=== PATIENT | male | born 1945 | race Caucasian/White ===

== ENCOUNTER 2017-01-12 16:09 | Inpatient (IN) | payer MEDICARE ==
[2017-01-12 17:15] LABS: Basophils % (Auto) 2.1 % (0.0-1.8); Eosinophils % (Auto) 2.8 % (0.0-4.3); Mean Corpuscular HGB Conc 31 % (32-34); Mean Corpuscular Hemoglobin 27 pg (28-32); Mean Corpuscular Volume 86 fl (84-94); Platelet Count 296 K/mm3 (140-440); Red Blood Count 4.99 M/mm3 (3.65-5.03); Red Cell Distribution Width 16.7 % (13.2-15.2); White Blood Count 7.3 K/mm3 (4.5-11.0)
[2017-01-12 17:18] LABS: Hematocrit 42.9 % (35.5-45.6); Hemoglobin 13.3 gm/dl (11.8-15.2)
[2017-01-12 17:35] LABS: Anion Gap 21 mmol/L; BUN/Creatinine Ratio 21.25; Blood Urea Nitrogen 34 mg/dL (9-20); Calcium 9.1 mg/dL (8.4-10.2); Carbon Dioxide 23 mmol/L (22-30); Chloride 102.1 mmol/L (98-107); Glucose 116 mg/dL (75-100); Potassium 4.5 mmol/L (3.6-5.0); Sodium 142 mmol/L (137-145)
[2017-01-12] MEDS ORDERED: LASIX IV ONE (18:14)
--- NOTE | 2017-01-12 18:16 | Emergency Department Report ---
ED Shortness of Breath HPI - General Chief Complaint: Dyspnea/Respdistress Stated Complaint: CHF Time Seen by Provider: 01/12/17 18:13 Source: patient, family Mode of arrival: Wheelchair Limitations: No Limitations - History of Present Illness MD Complaint: shortness of breath, cough -: Gradual Severity: moderate Quality: dull, aching Consistency: constant Improves With: nothing Worsens With: nothing Known History Of: congestive heart failure Context: recent URI Associated Symptoms: chest pain, polyuria, polydipsia Treatments Prior to Arrival: none - Related Data Home Oxygen Therapy: No Allergies Allergy/AdvReac Type Severity Reaction Status Date / Time codeine AdvReac Unknown Verified 01/12/17 16:26 ED Review of Systems ROS: Stated complaint: CHF Other details as noted in HPI Comment: All other systems reviewed and negative ED Past Medical Hx - Past Medical History Previous Medical History?: Yes Hx Hypertension: Yes Hx Heart Attack/AMI: Yes Hx Congestive Heart Failure: Yes Hx Deep Vein Thrombosis: Yes Additional medical history: Polycythemia vera. AICD/pacer - Surgical History Past Surgical History?: Yes Hx Open Heart Surgery: Yes Hx Pacemaker: Yes Additional Surgical History: Vascular surgery for DVT - Social History Smoking Status: Never Smoker Substance Use Type: None ED Physical Exam - General Limitations: No Limitations General appearance: alert, in no apparent distress - Head Head exam: Present: atraumatic, normocephalic - Eye Eye exam: Present: normal appearance - ENT ENT exam: Present: normal exam, normal orophraynx, mucous membranes moist - Neck Neck exam: Present: normal inspection - Respiratory Respiratory exam: Present: normal lung sounds bilaterally, respiratory distress , rales, rhonchi, decreased breath sounds - Cardiovascular Cardiovascular Exam: Present: regular rate, normal rhythm. Absent: systolic murmur, diastolic murmur, rubs, gallop - GI/Abdominal GI/Abdominal exam: Present: soft, normal bowel sounds - Rectal Rectal exam: Present: deferred - Extremities Exam Extremities exam: Present: normal inspection - Back Exam Back exam: Present: normal inspection - Neurological Exam Neurological exam: Present: alert, oriented X3 - Psychiatric Psychiatric exam: Present: normal affect, normal mood - Skin Skin exam: Present: warm, dry, intact, normal color. Absent: rash ED Course Vital Signs 01/12/17 01/12/17 16:19 18:25 Temperature 97.9 F 98.3 F Pulse Rate 97 H 84 Respiratory 20 20 Rate Blood Pressure 127/79 Blood Pressure 122/69 [Left] O2 Sat by Pulse 88 100 Oximetry ED Medical Decision Making - Lab Data Result diagrams: 01/12/17 17:02 01/12/17 17:02 - EKG Data Interpretation: no acute changes - Radiology Data Radiology results: report reviewed, image reviewed - Medical Decision Making will need admission for pulmonary edema / chf , no chest pain Critical care time in (mins) excluding proc time.: 35 Critical care attestation.: If time is entered above; I have spent that time in minutes in the direct care of this critically ill patient, excluding procedure time. ED Disposition Clinical Impression: Pulmonary edema Disposition: DC-09 OP ADMIT IP TO THIS HOSP Is pt being admited?: Yes Does the pt Need Aspirin: No Condition: Stable Instructions: Pulmonary Edema (ED) Referrals: PRIMARY CARE, [Primary Care Provider] - 3-5 Days Time of Disposition: 19:30
[2017-01-12 19:14] LABS: INR 2.09 (0.87-1.13)
--- NOTE | 2017-01-12 19:48 | History and Physical Report ---
History of Present Illness Chief complaint: Im short of breath, and my head charrer sent me in History of present illness: 71 YO Male with HTN, [place], CHF, CAD S/P CABG, DVT on therapeutic anticoagulation, DM, PCV, Metabolic Syndrome presents to ED for evaluation. Pt states that he has experienced shortness of breath, and bilateral leg swelling for the past week with worsening symptoms for the past 2 days. Pt acknowledges decreased exercise tolerance, Orthopnea/PND. Pt denies fever, chills, CP, Palpitations, NVD,Syncope, productive cough, or recent ill contacts. Past History Past Medical History: acute [place], diabetes, DVT, heart failure, hypertension Past Surgical History: CABG, Other (Pacemaker, vascular surgery) Social history: single, lives with family. denies: smoking, alcohol abuse, prescription drug abuse, IV drug use Family history: diabetes, hypertension Medications and Allergies Allergies Allergy/AdvReac Type Severity Reaction Status Date / Time codeine AdvReac Unknown Verified 01/12/17 16:26 Home Medications Medication Instructions Recorded Confirmed Last Taken Type Allopurinol [Zyloprim] 200 mg PO QDAY 01/12/17 01/12/17 Unknown History Amiodarone HCl [Amiodarone 100 MG 100 mg PO QDAY 01/12/17 01/12/17 Unknown History TAB] Ascorbic Acid [Vitamin C] 500 mg PO QDAY 01/12/17 01/12/17 Unknown History AtorvaSTATin [Lipitor] 40 mg PO QHS 01/12/17 01/12/17 Unknown History Bromfenac Sodium [Prolensa] 1 drop OD QDAY 01/12/17 01/12/17 Unknown History Cholecalciferol (Vitamin D3) 1 cap PO QDAY 01/12/17 01/12/17 Unknown History [Vitamin D3 2,000 unit] Furosemide [Lasix TAB] 40 mg PO QDAY 01/12/17 01/12/17 Unknown History Metoprolol [Lopressor TAB] 25 mg PO BID 01/12/17 01/12/17 Unknown History Terbinafine 1% [Lamisil At] 1 applicatio TRANSDERMA QDAY 01/12/17 01/12/17 Unknown History Warfarin Sodium [Coumadin] 0 mg PO QDAY 01/12/17 01/12/17 Unknown History glipiZIDE [glipiZIDE XL] 2.5 mg PO QAM 01/12/17 01/12/17 Unknown History prednisoLONE ACETATE 1% [Pred 4 drop OD QDAY 01/12/17 01/12/17 Unknown History Forte 1%] Review of Systems Constitutional: no fever, no chills, no sweats Ears, nose, mouth and throat: no ear pain, no ear discharge, no tinnitis, no decreased hearing Cardiovascular: orthopnea, shortness of breath, paroxysmal nocturnal dyspnea, no chest pain Respiratory: no cough with sputum, no excessive sputum, no hemoptysis Gastrointestinal: no nausea, no vomiting, no diarrhea Genitourinary Male: no dysuria, no hematuria, no flank pain Rectal: no pain, no incontinence, no bleeding Musculoskeletal: no neck pain, no shooting arm pain, no low back pain Integumentary: no rash, no redness, no sores, no wounds, no jaundice Neurological: no head injury, no transient paralysis, no paralysis, no parathesias, no numbness, no tingling, no seizures Psychiatric: no anxiety, no memory loss, no sleep disturbances, no hypersomnia, no change in appetite Endocrine: no cold intolerance, no heat intolerance, no excessive thirst, no polydipsia Hematologic/Lymphatic: no easy bruising, no easy bleeding Allergic/Immunologic: no urticaria, no allergic rhinitis Exam - Constitutional Vitals: Temp Pulse Resp BP Pulse Ox 98.3 F 84 20 122/69 100 01/12/17 18:25 01/12/17 18:25 01/12/17 18:25 01/12/17 18:25 01/12/17 18:25 General appearance: Present: obese - Respiratory Respiratory: bilateral: diminished, wheezing - Cardiovascular Heart Sounds: Present: S1 & S2. Absent: rub, click - Extremities Extremities: pulses symmetrical, No edema Extremity abnormal: edema Peripheral Pulses: within normal limits - Abdominal General gastrointestinal: Present: soft, non-tender, non-distended, normal bowel sounds Male genitourinary: Present: normal - Integumentary Integumentary: Present: clear, warm, dry - Musculoskeletal Musculoskeletal: gait normal, strength equal bilaterally - Psychiatric Psychiatric: appropriate mood/affect, intact judgment & insight - Neurologic Neurologic: CNII-XII intact, moves all extremities Results - Labs CBC & Chem 7: 01/12/17 17:02 08/23/17 17:02 Labs: Abnormal lab results 01/12/17 01/12/17 01/12/17 Range/Units 17:02 17:02 17:02 MCH 27 L (28-32) pg MCHC 31 L (32-34) % RDW 16.7 H (13.2-15.2) % [place] % (Auto) 8.9 H (0.0-7.3) % Baso % (Auto) 2.1 H (0.0-1.8) % Lymph # 1.1 L (1.2-5.4) K/mm3 Baso # 0.2 H (0.0-0.1) K/mm3 Seg Neutrophils % 71.1 H (40.0-70.0) % PT (12.2-14.9) Sec. INR (0.87-1.13) APTT (24.2-36.6) Sec. BUN 34 H (9-20) mg/dL Creatinine 1.6 H (0.8-1.5) mg/dL Glucose 116 H (75-100) mg/dL NT-Pro-B Natriuret Pep 5207 H (0-900) pg/mL 01/12/17 Range/Units 18:35 MCH (28-32) pg MCHC (32-34) % RDW (13.2-15.2) % [place] % (Auto) (0.0-7.3) % Baso % (Auto) (0.0-1.8) % Lymph # (1.2-5.4) K/mm3 Baso # (0.0-0.1) K/mm3 Seg Neutrophils % (40.0-70.0) % PT 24.6 H (12.2-14.9) Sec. INR 2.09 H (0.87-1.13) APTT 37.0 H (24.2-36.6) Sec. BUN (9-20) mg/dL Creatinine (0.8-1.5) mg/dL Glucose (75-100) mg/dL NT-Pro-B Natriuret Pep (0-900) pg/mL Assessment and Plan - Patient Problems (1) CHF (congestive heart failure) Current Visit: Yes Status: Acute Qualifiers: Congestive heart failure type: C Congestive heart failure chronicity: C Plan to address problem: Cardiology consulted, fluid restriction, daily weight, diuresis, monitor uop q shift for negative fluid balance, afterload reduction, cardiology consulted, serial cardiac enzymes, telemetry (2) ARF (acute renal failure) Current Visit: Yes Status: Acute Qualifiers: Acute renal failure type: A Plan to address problem: monitor uop q shift, supportive care. (3) Diabetes Current Visit: Yes Status: Acute Qualifiers: Diabetes mellitus type: D Diabetes mellitus complication status: D Diabetes mellitus complication detail: D Diabetic retinopathy severity: D Proliferative retinopathy type: P Diabetes mellitus macular edema: D Diabetes mellitus middle or intermediate school principal insulin use: D Laterality: L Chronic kidney disease stage: C Plan to address problem: ADA diet, insulin, accu check (4) Metabolic syndrome Current Visit: Yes Status: Acute Plan to address problem: balanced diet, increased physical activity, (5) DVT (deep venous thrombosis) Current Visit: Yes Status: Acute Qualifiers: DVT location: D Affected thrombotic vein of extremity: A Chronicity: C Laterality: L Plan to address problem: resume therapeutic anticoagulation (6) DVT prophylaxis Current Visit: Yes Status: Acute
[2017-01-12] MEDS ORDERED: TYLENOL PO PRN (19:49)
[2017-01-12] MEDS ORDERED: PROVENTIL IH PRN (19:49)
[2017-01-12] MEDS ORDERED: ZOFRAN IV PRN (19:49)
[2017-01-12] MEDS ORDERED: D50W (25GM) Syringe IV PRN (19:54)
[2017-01-12] MEDS: COUMADIN PO SCH (22:34)
[2017-01-12] MEDS: LOPRESSOR PO SCH (22:35)
[2017-01-12] MEDS: NOVOLOG SUB-Q SCH (22:36)
[2017-01-13] MEDS: LASIX IV SCH ×2 (06:15→18:02)
[2017-01-13 06:38] LABS: INR 2.04 (0.87-1.13)
--- NOTE | 2017-01-13 07:36 | XRay Report ---
ROUTINE CHEST, TWO VIEWS: HISTORY: Shortness of breath. No comparison. Previous CABG changes and multilead pacemaker device are noted. Moderate cardiomegaly, mild pulmonary venous congestion and small bilateral pleural effusions are identified. No consolidation or pneumothorax. The bony structures are within normal limits. IMPRESSION: Mild CHF.
[2017-01-13] MEDS: NOVOLOG SUB-Q SCH ×4 (09:52→21:55)
[2017-01-13] MEDS ORDERED: NON-FORMULARY (Warfarin Sodium [Coumadin] 3 MG) PO SCH (10:00)
[2017-01-13] MEDS ORDERED: NON-FORMULARY (Ascorbic Acid [Vitamin C] 500 MG) PO SCH (10:00)
[2017-01-13] MEDS ORDERED: AMIODARONE HCL 100 MG PO SCH (10:00)
[2017-01-13] MEDS ORDERED: CHOLECALCIFEROL PO SCH (10:00)
[2017-01-13] MEDS ORDERED: BROMFENAC SODIUM OD SCH (10:00)
[2017-01-13] MEDS: ZYLOPRIM PO SCH (10:13)
[2017-01-13] MEDS: VITAMIN C PO SCH (10:14)
[2017-01-13] MEDS: CORDARONE PO SCH (10:14)
[2017-01-13] MEDS: LOPRESSOR PO SCH ×2 (10:14→21:58)
[2017-01-13] MEDS: VITAMIN D3 PO SCH (10:15)
--- NOTE | 2017-01-13 10:19 | Consultation ---
History of Present Illness Consult date: 01/13/17 Requesting physician: SILVESTRE DOBBS Consult reason: congestive heart failure History of present illness: The pt is a 71 YO male with a past medical history significant for CAD, s/p AMI , PCI and CABG, CMP (last known EF 10% per pt report), AICD in situ, heart failure, permanent atrial fibrillation (anticoagulated with coumadin), DVT, HTN , HLP, DM, CHASTITY (noncompliant with PM CPAP) and obesity. He was seen for the first time in our office yesterday by Dr. Kristi Gamble. He relocated to [place] from [place] 4 months ago. He presented with c/o SOB, BARNES, orthopnea, PND, abdominal swelling and BLE swelling x 1 week [employer]. He denies any chest pain, palpitations, n/v, diaphoresis, dizziness or syncope. He reports compliance with all of his cardiac medications. He was seen in our office yesterday with these complaints and was referred to [facility] ED for further evaluation/management of heart failure. Admission CXR showed mild pulmonary venous congestion; pro-BNP 5131; serum Cr 1.6; INR 2.09; troponin negative for AMI x 1 set; ECG with NAF. Pt also admits to intermittent BLE claudication for the past several months and reports a history of "blood clots" in both legs, for which he underwent a vascular procedure. Past History Past Medical History: acute [place], diabetes, DVT, heart failure, hypertension, hyperlipidemia, other (CHASTITY) Past Surgical History: CABG, Other (Pacemaker, vascular surgery, PCI) Social history: single, lives with family. denies: smoking, alcohol abuse, prescription drug abuse, IV drug use Family history: diabetes, hypertension Medications and Allergies Allergies Allergy/AdvReac Type Severity Reaction Status Date / Time codeine AdvReac Unknown Verified 01/12/17 16:26 Home Medications Medication Instructions Recorded Confirmed Last Taken Type Allopurinol [Zyloprim] 200 mg PO QDAY 01/12/17 01/12/17 Unknown History Amiodarone HCl [Amiodarone 100 MG 100 mg PO QDAY 01/12/17 01/12/17 Unknown History TAB] Ascorbic Acid [Vitamin C] 500 mg PO QDAY 01/12/17 01/12/17 Unknown History AtorvaSTATin [Lipitor] 40 mg PO QHS 01/12/17 01/12/17 Unknown History Bromfenac Sodium [Prolensa] 1 drop OD QDAY 01/12/17 01/12/17 Unknown History Cholecalciferol (Vitamin D3) 1 cap PO QDAY 01/12/17 01/12/17 Unknown History [Vitamin D3 2,000 unit] Furosemide [Lasix TAB] 40 mg PO QDAY 01/12/17 01/12/17 Unknown History Metoprolol [Lopressor TAB] 25 mg PO BID 01/12/17 01/12/17 Unknown History Terbinafine 1% [Lamisil At] 1 applicatio TRANSDERMA QDAY 01/12/17 01/12/17 Unknown History Warfarin Sodium [Coumadin] 0 mg PO QDAY 01/12/17 01/12/17 Unknown History glipiZIDE [glipiZIDE XL] 2.5 mg PO QAM 01/12/17 01/12/17 Unknown History prednisoLONE ACETATE 1% [Pred 4 drop OD QDAY 01/12/17 01/12/17 Unknown History Forte 1%] Active Meds: Active Medications Acetaminophen (Tylenol) 650 mg PO Q4H PRN PRN Reason: Pain MILD(1-3)/Fever >100.5/STACK Albuterol (Proventil) 2.5 mg IH Q4HRT PRN PRN Reason: Shortness Of Breath Allopurinol (Zyloprim) 200 mg PO QDAY [facility] Last Admin: 01/13/17 10:13 Dose: 200 mg Amiodarone HCl (Cordarone) 100 mg PO DAILY [facility] Last Admin: 01/13/17 10:14 Dose: 100 mg Ascorbic Acid (Vitamin C) 500 mg PO QDAY [facility] Last Admin: 01/13/17 10:14 Dose: 500 mg Atorvastatin Calcium (Lipitor) 40 mg PO QHS [facility] Last Admin: 01/12/17 22:34 Dose: 40 mg Cholecalciferol (Vitamin D3) 2,000 unit PO DAILY [facility] Last Admin: 01/13/17 10:15 Dose: 2,000 unit Dextrose (D50w (25gm)) 50 ml IV PRN PRN PRN Reason: Hypoglycemia Furosemide (Lasix) 40 mg IV 0600,1800 [facility] Last Admin: 01/13/17 06:15 Dose: 40 mg Insulin Aspart (Novolog) 0 units SUB-Q ACHS [facility] PRN Reason: Protocol Last Admin: 01/13/17 09:52 Dose: Not Given Metoprolol Tartrate (Lopressor) 25 mg PO BID [facility] Last Admin: 01/13/17 10:14 Dose: 25 mg Miscellaneous Medication (Bromfenac Sodium [Prolensa]) 1 drop OD QDAY [facility] Ondansetron HCl (Zofran) 4 mg IV Q8H PRN PRN Reason: N/V unrelieved by Reglan Prednisolone Acetate (Pred Forte 1%) 1 drops OD QDAY [facility] Terbinafine HCl (Lamisil At) 1 applic TP QDAY [facility] Warfarin Sodium (Coumadin) 3 mg PO DAILY@1700 [facility] Last Admin: 01/12/17 22:34 Dose: 3 mg Review of Systems Constitutional: no weight loss, no weight gain, no fever, no chills, no sweats Ears, nose, mouth and throat: no ear pain, no nose pain, no sinus pressure, no sinus pain Cardiovascular: orthopnea, edema, shortness of breath, dyspnea on exertion, paroxysmal nocturnal dyspnea, claudication, high blood pressure, leg edema, decreased exercise tolerance, no chest pain, no palpitations, no rapid/ irregular heart beat, no syncope, no lightheadedness Respiratory: shortness of breath, dyspnea on exertion, no cough, no congestion, no wheezing, no pain on inspiration Gastrointestinal: no abdominal pain, no nausea, no vomiting, no diarrhea, no constipation, no change in bowel habits Genitourinary Male: no dysuria, no hematuria, no flank pain, no discharge, no urinary frequency, no urinary hesitancy Musculoskeletal: no neck stiffness, no neck pain, no shooting arm pain, no arm numbness/tingling, no low back pain, no shooting leg pain, no leg numbness/ tingling, no redness of joints Integumentary: no rash, no pruritis, no redness, no sores, no wounds Neurological: no head injury, no paralysis, no weakness, no parathesias, no numbness, no tingling, no seizures, no syncope Endocrine: no cold intolerance, no heat intolerance Hematologic/Lymphatic: no easy bruising, no easy bleeding, no lymphadenopathy Allergic/Immunologic: no urticaria, no wheezing, no persistent infections Physical Examination Vital Signs Temp Pulse Resp BP Pulse Ox 97.9 F 97 H 20 127/79 88 08/23/17 16:19 01/12/17 16:19 01/12/17 16:19 01/12/17 16:19 01/12/17 16:19 General appearance: no acute distress HEENT: Positive: PERRL, Normocephaly, Mucus Membranes Moist Neck: Positive: neck supple, trachea midline Cardiac: Positive: Reg Rate and Rhythm, S1/S2, Systolic Murmur Lungs: Positive: Decreased Breath Sounds Neuro: Positive: Grossly Intact, Cranial Nerve 2-12 Intact Abdomen: Positive: Active Bowel Sounds, Other (distended). Negative: Tender Skin: Positive: Clear. Negative: Rash, Wound Musculoskeletal: No Pain, Normal Range of Motion Extremities: Present: +1 Edema (BLE pitting), Other (chronic BLE skin changes noted) Results 01/12/17 17:02 01/12/17 17:02 Coagulation 01/13/17 Range/Units 05:18 PT 24.1 H (12.2-14.9) Sec. INR 2.04 H (0.87-1.13) - Imaging and Cardiology Echo: pending EKG: image reviewed EKG interpretations - Telemetry EKG Rhythm: Atrial Fibrillation - EKG Supraventricular dysrhythmia: atrial fibrillation QRS axis and voltage: left axis deviation Repolarization changes or abnormalities: nonspecific abnormality, ST segment, and/or T wave Pacemaker: atrial pacing w/capture Assessment and Plan Assessment: Acute systolic heart failure CAD, s/p AMI, PCI, and CABG CMP AICD in situ Permanent atrial fibrillation with CVR - anticoagulated with coumadin. HTN HLP DM ? PVD H/o DVT CHASTITY - noncompliant with CPAP Obesity Plan: Obtain echo. Obtain BLE arterial duplex studies. Cont ASA 81, lipitor, lopressor, amiodarone, IV lasix BID. Repeat BMP in AM. Cont coumadin with tx INR 2-3. Assessment and plan reviewed with pt at bedside. The patient has been seen in conjunction with Dr. Hinson who agrees with the assessment and plan of care.
--- NOTE | 2017-01-13 14:22 | Progress Note ---
Assessment and Plan Assessment and plan: 71 YO Male with HTN, [place], CHF, CAD S/P CABG, DVT on therapeutic anticoagulation, DM, PCV, Metabolic Syndrome presents to ED for evaluation. Pt states that he has experienced shortness of breath, and bilateral leg swelling for the past week with worsening symptoms for the past 2 days. Pt acknowledges decreased exercise tolerance, Orthopnea/PND. Pt denies fever, chills, CP, Palpitations, NVD,Syncope, productive cough, or recent ill contacts. Patient recently relocated from [place] to [place] about 4 months ago and was sent to the ER by [employer] on follow up for further evaluation due to shortness of breath. Acute systolic heart failure * Cardiology input noted * Continue diuresis, IV lasix BID, lopressor. Hold ACEI/ARB till renal function baseline determined * Fluid restriction, daily weight, echocardiogram MOISÉS- Likely vasomotor nephropathy * [place] strict I/O ?basline. avoid nephrotoxic susbtance. If worse with diuresis obtain nephrology CAD, s/p AMI, PCI, and CABG - AICD in situ * Continue ASA, Lipidor Permanent atrial fibrillation with CVR * Continue warfarin. Monitor INR. * Continue Amiodarone-Side effects discussed in detail HTN * Continue current therapy HLP * Continue lipitor Metabolic syndrom * Weight loss modality discussed in detail DM * Continue accucheck and insulin. ? PVD * Further vascular work up outpatient. continue anticoagulation H/o DVT * On anticoagulation Secondary Coagulopathy * Secondary to warfin CHASTITY - noncompliant with CPAP * Compliance discussed in detail Per family, patient schedule for Abdominal U/S in am. will perform here due to hospitalization and better care coordination [facility] Plan of care discussed with patient and family History Interval history: Patient seen and examined, still with some shortness of breath but improving. Hospitalist Physical - Constitutional Vitals: Temp Pulse Resp BP Pulse Ox 97.8 F 77 20 115/69 97 01/13/17 11:00 01/13/17 11:00 01/13/17 11:00 01/13/17 11:00 01/13/17 11:00 General appearance: Present: no acute distress, mild distress, well-nourished - EENT Eyes: Present: PERRL, EOM intact ENT: clear oral mucosa - Neck Neck: Present: supple, normal ROM, masses or JVD (jvd) - Respiratory Respiratory effort: normal Respiratory: bilateral: diminished - Cardiovascular Rhythm: regular Heart Sounds: Present: S1 & S2 - Extremities Extremities: no ischemia, pulses intact, Full ROM Extremity abnormal: edema (1+ and pitting) Peripheral Pulses: within normal limits - Abdominal General gastrointestinal: soft, non-tender, non-distended, normal bowel sounds - Integumentary Integumentary: Present: clear, warm - Psychiatric Psychiatric: appropriate mood/affect - Neurologic Neurologic: CNII-XII intact - Allied Health Allied health notes reviewed: nursing Results - Labs CBC & Chem 7: 01/12/17 17:02 01/12/17 17:02 Labs: Laboratory Last Values WBC 7.3 K/mm3 (4.5-11.0) 01/12/17 17: RBC 4.99 M/mm3 (3.65-5.03) 01/12/17 17: Hgb 13.3 gm/dl (11.8-15.2) 01/12/17 17: Hct 42.9 % (35.5-45.6) 01/12/17 17: MCV 86 fl (84-94) 01/12/17 17:02 MCH 27 pg (28-32) L 01/12/17 17:02 MCHC 31 % (32-34) L 01/12/17 17:02 RDW 16.7 % (13.2-15.2) H 01/12/17 17:02 Plt Count 296 K/mm3 (140-440) 01/12/17 17:02 Lymph % (Auto) 15.1 % (13.4-35.0) 01/12/17 17:02 [place] % (Auto) 8.9 % (0.0-7.3) H 01/12/17 17:02 Eos % (Auto) 2.8 % (0.0-4.3) 01/12/17 17:02 Baso % (Auto) 2.1 % (0.0-1.8) H 01/12/17 17:02 Lymph # 1.1 K/mm3 (1.2-5.4) L 01/12/17 17:02 [place] # 0.7 K/mm3 (0.0-0.8) 01/12/17 17:02 Eos # 0.2 K/mm3 (0.0-0.4) 01/12/17 17:02 Baso # 0.2 K/mm3 (0.0-0.1) H 01/12/17 17:02 Seg Neutrophils % 71.1 % (40.0-70.0) H 01/12/17 17:02 Seg Neutrophils # 5.2 K/mm3 (1.8-7.7) 01/12/17 17:02 PT 24.1 Sec. (12.2-14.9) H 01/13/17 05:18 INR 2.04 (0.87-1.13) H 01/13/17 05:18 APTT 37.0 Sec. (24.2-36.6) H 01/12/17 18:35 Sodium 142 mmol/L (137-145) 01/12/17 17:02 Potassium 4.5 mmol/L (3.6-5.0) 01/12/17 17:02 Chloride 102.1 mmol/L (98-107) 01/12/17 17:02 Carbon Dioxide 23 mmol/L (22-30) 01/12/17 17:02 Anion Gap 21 mmol/L 01/12/17 17:02 BUN 34 mg/dL (9-20) H 01/12/17 17:02 Creatinine 1.6 mg/dL (0.8-1.5) H 01/12/17 17:02 Estimated GFR 43 ml/min 01/12/17 17:02 BUN/Creatinine Ratio 21.25 % 01/12/17 17:02 Glucose 116 mg/dL (75-100) H 01/12/17 17:02 POC Glucose 108 (70-105) H 01/13/17 13:16 Calcium 9.1 mg/dL (8.4-10.2) 01/12/17 17:02 Troponin T < 0.010 ng/mL (0.00-0.029) 01/12/17 17:02 NT-Pro-B Natriuret Pep 5131 pg/mL (0-900) H 01/12/17 18:35 - Imaging and Cardiology Chest x-ray: image reviewed (vascular congestion)
[2017-01-13 14:35] LABS: BUN/Creatinine Ratio 22.35; Calcium 9.1 mg/dL (8.4-10.2); Chloride 101.7 mmol/L (98-107); Potassium 4.4 mmol/L (3.6-5.0)
--- NOTE | 2017-01-13 17:22 | Admit Criteria Form ---
Admission Criteria Documentation: HEART FAILURE Clinical Indications for Admission to Inpatient Care (Place 'X' for any and all applicable criteria): Admission is indicated by 1 or more of the following(1)(2)(3)(4)(5)(6)(7) [ ]I. Hemodynamic instability(9) [ ]II. Severe electrolyte abnormalities requiring inpatient care [ ]III. Cardiac arrhythmias of immediate concern [ ]IV. Precipitating cause for acute decompensation (eg, pneumonia, pulmonary embolism) requires inpatient care [ ]V. Acute cardiac ischemia causing or associated with failure (Also use Angina or Myocardial Infarction as appropriate) [ ]. Pulmonary edema that is very severe (eg, mechanical ventilation needed, imminent or likely, need for 100% oxygen to keep oxygen saturation above 90%) [ ]VII. Massive skin edema (anasarca) with complications (eg tissue breakdown with infection, inability to void due to edema)[A] (15) [ X]VIIl. Inpatient admission required [B]rather than observation care (See Heart Failure: Observation Care as appropriate) because of 1 or more of the following(16)(17): [X ]a) Pulmonary edema that is severe or worsening as indicated by ALL of the following: [ X]1) New need for oxygen therapy to keep oxygen saturation above 90% (or increased FiO2 need from baseline) [ X]2) Has not improved sufficiently with emergency department or observation care IV diuretics or other heart failure treatments[C] [ ]b) Altered mental status that is severe or persistent [ ]c) Increased creatinine (new on laboratory test) with reduction of more than 50% in estimated glomerular filtration rate from baseline. [ ]d) Progressively (ongoing) rising creatinine (known from past laboratory test) with reduction of more than 25% in estimated glomerular filtration rate from baseline [ ]e) Acute renal insufficiency (progressively (ongoing) rising creatinine (known from past laboratory test) with reduction of more than 25% in estimated glomerular filtration rate from baseline. [ ]f) Acute renal failure [ ]g) Acute peripheral ischemia (e.g., examination shows pulseless, cool, mottled, or cyanotic extremity) [ ]h) Oyxgen administration or respiratory treatments have been needed for over 24 hours that are performable only in acute inpatient setting [ ]i) Pulmonary artery catheter monitoring [ ]j) Other condition, treatment or monitoring requiring inpatient admission Extended stay beyond goal length of stay may be needed for(1)(14)(38)(42)(45) [ ]a) Cardiac ischemia, confirmed or suspected as precipitant (1) [ ]b) Cardiogenic shock (2)(46)(47)(48)(49) [ ]c) Acute renal failure [ ]d) Stage IV chronic kidney disease (estimated glomerular filtration rate of less than 30 mL/min/1.73m2 (0.50 mL/sec/1.73m2), and not previously on chronic dialysis [ ]e) Respiratory failure (eg, need for noninvasive or invasive ventilation) ( 50) [ ]f) Concomitant pneumonia or significant electrolyte abnormality (eg, severe hyponatremia) (51) [ ]g) Newly diagnosed (new onset) atrial fibrillation (52)(53) The original [facility] content created by [employer] has been revised. The portions of the content which have been revised are identified through the use of italic text or in bold, and [facility] has neither reviewed nor approved the modified material. All other unmodified content is copyright [facility]. Please see references footnoted in the original [facility] edition 2017
[2017-01-13] MEDS: COUMADIN PO SCH (17:58)
[2017-01-13] MEDS: BABY ASPIRIN PO SCH (17:58)
[2017-01-13] MEDS: LAMISIL AT TP SCH (18:03)
[2017-01-13] MEDS: PRED FORTE 1% OD SCH (18:03)
[2017-01-14] MEDS: LASIX IV SCH (06:00)
[2017-01-14 06:45] LABS: INR 1.94 (0.87-1.13)
[2017-01-14 06:53] LABS: BUN/Creatinine Ratio 21.05; Calcium 8.4 mg/dL (8.4-10.2); Chloride 104.2 mmol/L (98-107); Potassium 3.9 mmol/L (3.6-5.0)
--- NOTE | 2017-01-14 07:14 | Vascular Lab Report ---
LOWER EXTREMITY ARTERIAL DUPLEX: REASON FOR EXAM: Peripheral arterial disease. COMMENTS ON THE RIGHT: Triphasic waveforms are seen proximally. Biphasic waveforms are seen distally. No significant velocity gradients are identified. No focal significant plaque is identified. Findings are consistent with normal perfusion. Findings are consistent with the ability to heal distal wounds. COMMENTS ON THE LEFT: Triphasic waveforms are seen proximally. Monophasic waveforms are seen distally. No flow noted in mid to distal SFA.. Plaque noted in the SFA.. Findings are consistent with abnormal perfusion. Findings are inconsistent with the ability to heal distal wounds. IMPRESSION: RIGHT: Essentially normal arterial flow. LEFT:Left superficial femoral artery occlusion.
[2017-01-14] MEDS: NOVOLOG SUB-Q SCH ×2 (08:00→13:37)
--- NOTE | 2017-01-14 08:36 | Progress Note ---
Assessment and Plan Assessment and plan: 71 YO Male with HTN, [place], CHF, CAD S/P CABG, DVT on therapeutic anticoagulation, DM, PCV, Metabolic Syndrome presents to ED for evaluation. Pt states that he has experienced shortness of breath, and bilateral leg swelling for the past week with worsening symptoms for the past 2 days. Pt acknowledges decreased exercise tolerance, Orthopnea/PND. Pt denies fever, chills, CP, Palpitations, NVD,Syncope, productive cough, or recent ill contacts. Patient recently relocated from [place] to [place] about 4 months ago and was sent to the ER by Head Waiter/[employer] on follow up for further evaluation due to shortness of breath. Acute systolic/diasolic combined heart failure * Cardiology input noted * Continue diuresis, IV lasix BID, lopressor. Hold ACEI/ARB till renal function baseline determined * Fluid restriction, daily weight, [positive 640CC]? Accuracy of I/O. Weight down by 12 Pounds 121 to 113kg * Echo shows EF of 10-15%, * severe Pulmonary HTN, Severely dilated Atrium, mild to mod MR/TR MOISÉS- Likely vasomotor nephropathy * Montor strict I/O ?basline. avoid nephrotoxic susbtance. * slight increase in renal function. Nephrology consult will be ideal for this patient. CAD, s/p AMI, PCI, and CABG - AICD in situ * Continue ASA, Lipitor Permanent atrial fibrillation with CVR * Continue warfarin. Monitor INR. * Continue Amiodarone-Side effects discussed in detail HTN * Continue current therapy HLP * Continue lipitor Metabolic syndrom * Weight loss modality discussed in detail DM * Continue accucheck and insulin. ? PVD * Further vascular work up outpatient. continue anticoagulation H/o DVT * On anticoagulation Secondary Coagulopathy * Secondary to warfin CHASTITY - noncompliant with CPAP * Compliance discussed in detail Per family, patient schedule for Abdominal U/S in am. will perform here due to hospitalization and better care coordination GI prophy Plan of care discussed with patient and family Hospitalist Physical - Constitutional Vitals: Temp Pulse Resp BP Pulse Ox 97.6 F 71 20 113/65 95 01/14/17 05:39 01/14/17 05:39 01/14/17 05:39 01/14/17 05:39 01/14/17 05:39 General appearance: Present: no acute distress, mild distress, well-nourished Results - Labs CBC & Chem 7: 01/12/17 17:02 01/14/17 06:02 Labs: Laboratory Last Values WBC 7.3 K/mm3 (4.5-11.0) 01/12/17 17:02 RBC 4.99 M/mm3 (3.65-5.03) 01/12/17 17:02 Hgb 13.3 gm/dl (11.8-15.2) 01/12/17 17:02 Hct 42.9 % (35.5-45.6) 01/12/17 17:02 MCV 86 fl (84-94) 01/12/17 17:02 MCH 27 pg (28-32) L 01/12/17 17:02 MCHC 31 % (32-34) L 01/12/17 17:02 RDW 16.7 % (13.2-15.2) H 01/12/17 17:02 Plt Count 296 K/mm3 (140-440) 01/12/17 17:02 Lymph % (Auto) 15.1 % (13.4-35.0) 01/12/17 17:02 Bremer % (Auto) 8.9 % (0.0-7.3) H 01/12/17 17:02 Eos % (Auto) 2.8 % (0.0-4.3) 01/12/17 17:02 Baso % (Auto) 2.1 % (0.0-1.8) H 01/12/17 17:02 Lymph # 1.1 K/mm3 (1.2-5.4) L 01/12/17 17:02 Bremer # 0.7 K/mm3 (0.0-0.8) 01/12/17 17:02 Eos # 0.2 K/mm3 (0.0-0.4) 01/12/17 17:02 Baso # 0.2 K/mm3 (0.0-0.1) H 01/12/17 17:02 Seg Neutrophils % 71.1 % (40.0-70.0) H 01/12/17 17:02 Seg Neutrophils # 5.2 K/mm3 (1.8-7.7) 01/12/17 17:02 PT 22.2 Sec. (12.2-14.9) H 01/14/17 06:02 INR 1.94 (0.87-1.13) H 01/14/17 06:02 APTT 37.0 Sec. (24.2-36.6) H 01/12/17 18:35 Sodium 146 mmol/L (137-145) H 01/14/17 06:02 Potassium 3.9 mmol/L (3.6-5.0) 01/14/17 06:02 Chloride 104.2 mmol/L (98-107) 01/14/17 06:02 Carbon Dioxide 28 mmol/L (22-30) 01/14/17 06:02 Anion Gap 18 mmol/L 01/14/17 06:02 BUN 40 mg/dL (9-20) H 01/14/17 06:02 Creatinine 1.9 mg/dL (0.8-1.5) H 01/14/17 06:02 Estimated GFR 35 ml/min 01/14/17 06:02 BUN/Creatinine Ratio 21.05 % 01/14/17 06:02 Glucose 86 mg/dL (75-100) 01/14/17 06:02 POC Glucose 97 (70-105) 01/13/17 21:27 Calcium 8.4 mg/dL (8.4-10.2) 01/14/17 06:02 Troponin T < 0.010 ng/mL (0.00-0.029) 01/12/17 17:02 NT-Pro-B Natriuret Pep 5131 pg/mL (0-900) H 01/12/17 18:35
[2017-01-14 09:19] VITALS: BP 112/63
--- NOTE | 2017-01-14 10:17 | Progress Note ---
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 HTN HLP DM PAD Renal insufficiency H/o DVT CHASTITY - noncompliant with CPAP Severe pulmonary HTN - RVSP 87mmHg Obesity Plan: Echo reviewed - EF 10-15%, LV mild to moderately dilated, abnormal diastolic function, LA severely dilated, RV slightly dilated, RV systolic function severely reduced, RA severely dilated, mild to moderate MR, mild to moderate TR , severe pulmonary HTN, RVSP 87mmHg. BLE arterial duplex studies show LOW VELOCITIES IN RLE FROM DS SFA DOWN THROUGH RUN-OFF VESSELS. LLE NOTED WITH OCCLUDED MD-DS SFA AND THEN RECONSTITUTION OF POP A WITH MONOPHASIC FROM IN POP A INTO RUN-OFFS - will plan for further eval/ management as OP. Cont ASA 81, lipitor, lopressor, amiodarone. Convert IV lasix to PO, 40mg daily. No ACEI/ARB at this time in setting of renal insufficiency. Cont coumadin with tx INR 2-3. Currently stable cardiac status. Pt may discharge home from cardiology standpoint. Follow up in our [place] office for labwork on 01/25/2017 @ 1:30PM. Follow up in our [place] office with Dr. Kristi Gamble on 01/28/2017 @ 2:00PM. Assessment and plan reviewed with pt at bedside. The patient has been seen in conjunction with Dr. Hinson who agrees with the assessment and plan of care. Subjective Date of service: 01/14/17 Principal diagnosis: HF Interval history: Pt sitting up in chair, states he is feeling great. Has been ambulating around unit without difficulty. Orthopnea resolved; BLE edema improving. VSS. NSVT noted overnight on telemetry - pt asymptomatic. Objective Last Vital Signs Temp 98.1 F 01/14/17 08:00 Pulse 80 01/14/17 08:00 Resp 20 01/14/17 08:00 BP 112/63 01/14/17 08:00 Pulse Ox 96 01/14/17 08:00 - Physical Examination General: Appears Well, No Apparent Distress HEENT: Positive: PERRL, Normocephaly, Mucus Membranes Moist Neck: Positive: neck supple, trachea midline Cardiac: Positive: irregularly irregular, S1/S2 Lungs: Positive: Decreased Breath Sounds Neuro: Positive: Grossly Intact, Cranial Nerve 2-12 Intact Abdomen: Positive: Active Bowel Sounds, Other (distended). Negative: Tender Skin: Positive: Clear. Negative: Rash, Wound Musculoskeletal: No Pain, Normal Range of Motion Extremities: Present: +1 Edema (BLE pitting), Other (chronic BLE skin changes noted) - Labs and Meds Coagulation 01/14/17 Range/Units 06:02 PT 22.2 H (12.2-14.9) Sec. INR 1.94 H (0.87-1.13) Comprehensive Metabolic Panel 01/13/17 01/14/17 Range/Units 13:19 06:02 Sodium 143 146 H (137-145) mmol/L Potassium 4.4 3.9 (3.6-5.0) mmol/L Chloride 101.7 104.2 (98-107) mmol/L Carbon Dioxide 26 28 (22-30) mmol/L BUN 38 H 40 H (9-20) mg/dL Creatinine 1.7 H 1.9 H (0.8-1.5) mg/dL Glucose 101 H 86 (75-100) mg/dL Calcium 9.1 8.4 (8.4-10.2) mg/dL - Imaging and Cardiology EKG: image reviewed Echo: report reviewed ( EF 10-15%, LV mild to moderately dilated, abnormal diastolic function, LA severely dilated, RV slightly dilated, RV systolic function severely reduced, RA severely dilated, mild to moderate MR, mild to moderate TR, severe pulmonary HTN, RVSP 87mmHg. ) QRS axis and voltage: left axis deviation Repolarization changes or abnormalities: nonspecific abnormality, ST segment, and/or T wave Pacemaker: atrial pacing w/capture
--- NOTE | 2017-01-14 10:22 | Discharge Summary ---
Providers - Providers Date of Admission: 01/12/17 19:49 Attending physician: MICAELA BELLA MD Primary care physician: PERSONNEL MONITOR Hospitalization Reason for admission: shortness of breath Condition: Stable Hospital course: 71 YO Male with HTN, [place], CHF, CAD S/P CABG, DVT on therapeutic anticoagulation, DM, PCV, Metabolic Syndrome presents to ED for evaluation. Pt states that he has experienced shortness of breath, and bilateral leg swelling for the past week with worsening symptoms for the past 2 days. Pt acknowledges decreased exercise tolerance, Orthopnea/PND. Pt denies fever, chills, CP, Palpitations, NVD,Syncope, productive cough, or recent ill contacts. Patient recently relocated from [place] to [place] about 4 months ago and was sent to the ER by Graduate Student Instructor on follow up for further evaluation due to shortness of breath. Acute systolic/diasolic combined heart failure * pateint was treated with IV lasix BID, lopressor. we held ACEI/ARB till renal function baseline determined * Fluid restriction, daily weight, [positive 640CC]? Accuracy of I/O. Weight down by 12 Pounds 121 to 113kg * Echo shows EF of 10-15%, * severe Pulmonary HTN, Severely dilated Atrium, mild to mod MR/TR * patient will continue on PO lasix outaptient and will follow with cardiology MOISÉS- Likely vasomotor nephropathy * Montor strict I/O ?basline. avoid nephrotoxic susbtance. * slight increase in renal function. * follows with nephroliogist OUTPATIENT and work up currently ongoing. CAD, s/p AMI, PCI, and CABG - AICD in situ, ischemic cardimyopathy * Continue ASA, Lipitor Permanent atrial fibrillation with CVR * Continue warfarin. * Continue Amiodarone-Side effects discussed in detail HTN * Continue current therapy HLP * Continue lipitor Metabolic syndrom * Weight loss modality discussed in detail DM * Continue accucheck and insulin. ? PVD * Further vascular work up outpatient. continue anticoagulation H/o DVT * On anticoagulation Secondary Coagulopathy * Secondary to warfin CHASTITY - noncompliant with CPAP * Compliance discussed in detail Care was discussed in detail with patient and family and they verbalized understanding. Disposition: DC-01 TO HOME OR SELFCARE Time spent for discharge: 35 mins Core Measure Documentation - Palliative Care Palliative Care/ Comfort Measures: Not Applicable - Core Measures Any of the following diagnoses?: heart failure - VTE Discharge Requirements Deep Vein Thrombosis/Pulmonary Embolism Present on Admission: No - Heart Failure Discharge Requirements JEANCARLOS/ARB for LVSD if EF <40%: Not Applicable Reason for no JEANCARLOS/ARB: Renal impairment Beta albino at discharge: Yes Exam - Physical Exam Narrative exam: VITAL SIGNS: Reviewed. GENERAL: The patient appeared well nourished and normally developed. Obese. Vital signs as documented. HEAD: No signs of head trauma. EYES: Pupils are equal. Extraocular motions intact. EARS: Hearing grossly intact. MOUTH: Oropharynx is normal. NECK: No adenopathy, no JVD. CHEST: Chest with clear breath sounds bilaterally. No wheezes, rales, or rhonchi. CARDIAC: Regular rate and rhythm. S1 and S2, without murmurs, gallops, or rubs. VASCULAR: No Edema. Peripheral pulses +1 lower extremities. ABDOMEN: Soft, without detectable tenderness. No sign of distention. No rebound or guarding, and no masses palpated. Bowel Sounds normal. MUSCULOSKELETAL: Good range of motion of all major joints. Extremities without clubbing, cyanosis or edema. NEUROLOGIC EXAM: Alert and oriented x 3. No focal sensory or strength deficits. Speech normal. Follows commands. PSYCHIATRIC: Mood normal. SKIN: Chronic venous changes bilateral lower extremity - Constitutional Vitals: Temp Pulse Resp BP Pulse Ox 98.1 F 80 20 112/63 96 01/14/17 08:00 01/14/17 08:00 01/14/17 08:00 01/14/17 08:00 01/14/17 08:00 Plan Activity: advance as tolerated, fall precautions Diet: low salt, diabetic Special Instructions: restrict fluid intake to (1000cc/day), record daily weights, record daily BP diary, record blood sugar diary Additional Instructions: follow with primary steam pressure chamber operator. continue to monitor INR Follow up with: SIOBHAN GARVIN MD [Primary Care Provider] - 3-5 Days JANEI KYLE MD [Staff Physician] - 7 Days Forms: Warfarin Discharge Instruction Prescriptions: Furosemide [Lasix TAB] 40 mg PO QDAY #30 tablet
--- NOTE | 2017-01-14 11:27 | Ultrasound Report ---
ULTRASOUND ABDOMEN COMPLETE INDICATION: Bloating. COMPARISON: None similar. FINDINGS: Abdominal ultrasound demonstrates normal hepatic echogenicity, though slight diffuse coarsening and or subtle hepatic surface lobulation not entirely excluded. No definite focal suspicious lesions or biliary dilatation. Few small echogenic, shadowing gallstones and minimal gallbladder sludge noted. Gallbladder wall thickened to 8.2 mm. No pericholecystic fluid or positive sonographic Dawkins's sign however. Common bile duct is 3.3 mm. Homogenous spleen, 12.1 cm in length. No ascites. Pancreas not well-visualized, though imaged portions, IVC and abdominal aorta appear within normal limits. No hydronephrosis, though mild increased renal cortical echogenicity suspected. Right kidney is 9.7 x 4.8 x 5.7 cm with cortical thickness of 1.4 cm. Approximately 1.6 cm right renal cortical partly exophytic cyst, image 19. Left kidney estimated at 12 x 6.2 x 6.2 cm with cortical thickness of 1.8 cm. Approximately 1.2 cm left interpolar renal cyst may also be noted, image 43. Small left pleural effusion may be present. Few additional images demonstrate a predominantly solid, round, 2 x 1.4 cm structure superficially with intrinsic blood flow. Small crescentic possible fluid may be seen along its left lateral aspect as on images 45-50. CONCLUSION: 1. A 2 x 1.4 cm round masslike superficial structure superior to the umbilicus in this patient with stated history of umbilical hernia, nonspecific, though may be better characterized with additional imaging as CT, if warranted. 2. Thickened gallbladder wall in this patient with cholelithiasis and possible mild sludge. No other sonographic features however to suggest acute cholecystitis. Please correlate. 3. Various other incidental findings, including small left pleural effusion, small bilateral renal cysts with possible mild underlying medical renal disease and slight hepatic coarsening, amongst others, as above. Thank you for the opportunity to participate in this patient's care.
[2017-01-14] MEDS: VITAMIN D3 PO SCH (13:34)
[2017-01-14] MEDS: BABY ASPIRIN PO SCH (13:34)
[2017-01-14] MEDS: LOPRESSOR PO SCH (13:34)
[2017-01-14] MEDS: ZYLOPRIM PO SCH (13:35)
[2017-01-14] MEDS: CORDARONE PO SCH (13:35)
[2017-01-14] MEDS: PRED FORTE 1% OD SCH (13:36)
[2017-01-14] MEDS: VITAMIN C PO SCH (13:36)
[2017-01-14] MEDS: LAMISIL AT TP SCH (13:36)
== END 2017-01-14 15:19 | disposition home or self-care (01) | DRG 291 ==
LOC: ED 16:09 → 4A 19:49
PROVIDERS: ADMIT Internal Medicine; ATTEND Internal Medicine
DX: I11.0 Hypertensive heart disease with heart failure (principal); N17.0 Acute kidney failure with tubular necrosis; D68.9 Coagulation defect, unspecified; I50.41 Acute combined systolic (congestive) and diastolic (congestive) heart failure; I48.91 Unspecified atrial fibrillation; Z88.6 Allergy status to analgesic agent; I25.2 Old myocardial infarction; I25.10 Atherosclerotic heart disease of native coronary artery without angina pectoris; Z95.1 Presence of aortocoronary bypass graft; Z83.3 Family history of diabetes mellitus; Z82.49 Family history of ischemic heart disease and other diseases of the circulatory system; E88.81 Metabolic syndrome and other insulin resistance; E78.5 Hyperlipidemia, unspecified; G47.33 Obstructive sleep apnea (adult) (pediatric); E66.9 Obesity, unspecified; Z68.35 Body mass index [BMI] 35.0-35.9, adult; I27.2 Other secondary pulmonary hypertension; Z95.810 Presence of automatic (implantable) cardiac defibrillator; E11.51 Type 2 diabetes mellitus with diabetic peripheral angiopathy without gangrene; I25.5 Ischemic cardiomyopathy
CPT/HCPCS: 36415; 71020; 76700; 80048; 82962; 83880; 84484; 85025; 85610; 85730; 93005; 93010; 93306; 93925; 96374; A9270-GY; J1940